=== PATIENT | male | born 1985 | race Caucasian/White ===

== ENCOUNTER 2018-06-19 18:54 | Emergency (ER) | payer OTHER ==
[2018-06-19] MEDS ORDERED: ACETAMINOPHEN 500 MG TABLET PO STA (21:22)
[2018-06-19] MEDS ORDERED: DEXAMETHASONE 10 MG/ML VIAL PO STA (21:55)
[2018-06-19] MEDS ORDERED: LIDOCAINE PATCH 5% TOP STA (21:55)
[2018-06-19] MEDS ORDERED: KETOROLAC 60 MG/2 ML VIAL IM STA (21:55)
--- NOTE | 2018-06-19 22:03 | ED Physician Documentation ---
PD HPI BACK PAIN - Stated complaint Stated Complaint: BACK PAIN - Chief complaint Chief Complaint: Back Pain - History obtained from History obtained from: Patient - History of Present Illness Timing - onset: How many hours ago (6) Timing - duration: Hours (6) Timing - details: Gradual onset Pain level max: 6 Pain level now: 4 Severity Comments: mild Location: Upper Quality: Pain Associated symptoms: No: Fever, Weakness, Numbness Improves with: Rest Worsened by: Movement, Lifting Contributing factors: Lifting, Twisting - Additional information Additional information: Injury lifting weights Review of Systems Ten Systems: 10 systems reviewed and negative Constitutional: reports: Reviewed and negative Eyes: reports: Reviewed and negative Ears: reports: Reviewed and negative Nose: reports: Reviewed and negative Throat: reports: Reviewed and negative Cardiac: reports: Reviewed and negative Respiratory: reports: Reviewed and negative GI: reports: Reviewed and negative : reports: Reviewed and negative Skin: reports: Reviewed and negative Musculoskeletal: reports: Reviewed and negative Neurologic: reports: Reviewed and negative Psychiatric: reports: Reviewed and negative Endocrine: reports: Reviewed and negative Immunocompromised: reports: Reviewed and negative PD PAST MEDICAL HISTORY - Past Medical History Past Medical History: No Cardiovascular: None Respiratory: None Neuro: None Endocrine/Autoimmune: None GI: None : None HEENT: None Psych: None Musculoskeletal: None Derm: None - Past Surgical History Past Surgical History: Yes General: Other - Present Medications Home Medications: Ambulatory Orders Medication Instructions Recorded Confirmed Acetaminophen [Tylenol Extra 1,000 mg PO TID #60 tablet 06/19/18 Strength] Ibuprofen 800 mg PO TID #60 tablet 06/19/18 Lidocaine Patch 5% [Lidoderm Patch] 1 each PATCH DAILY #10 patch 06/19/18 - Allergies Allergies/Adverse Reactions: Allergies Allergy/AdvReac Type Severity Reaction Status Date / Time No Known Drug Allergies Allergy Verified 06/19/18 20:27 - Social History Does the pt smoke?: No Smoking Status: Never smoker Does the pt drink ETOH?: Yes ETOH Use: Wine, Beer, Liquor Does the pt have substance abuse?: No - Immunizations Immunizations are current?: Yes - POLST Patient has POLST: No PD ED PE NORMAL - Vitals Vital signs reviewed: Yes - General General: Alert and oriented X 3, No acute distress - HEENT HEENT: PERRL - Neck Neck: Supple, no meningeal sign - Cardiac Cardiac: RRR, No murmur - Respiratory Respiratory: Clear bilaterally - Abdomen Abdomen: Normal bowel sounds, Soft, Non tender, Non distended - Derm Derm: Warm and dry - Extremities Extremities: No deformity - Neuro Neuro: Alert and oriented X 3 - Psych Psych: Normal mood, Normal affect Results - Vitals Vitals: Vital Signs - 24 hr 06/19/18 19:11 Temperature 36.7 C Heart Rate 88 Respiratory 16 Rate Blood Pressure 146/79 H O2 Saturation 100 Oxygen O2 Source Room air PD MEDICAL DECISION MAKING - ED course Complexity details: re-evaluated patient, considered differential, d/w patient ED course: 33-year-old male with thoracic pain after lifting weights. Neurologically intact.Thoracic paraspinous tenderness. Discharged with symptomatic treatment and return precautions. Departure - Departure Disposition: 01 Home, Self Care Clinical Impression: Thoracic myofascial strain Qualifiers: Encounter type: initial encounter Qualified Code(s): S29.019A - Strain of muscle and tendon of unspecified wall of thorax, initial encounter Condition: Stable Instructions: ED Sprain Thoracic Spine Follow-Up: YULIYA LENTZ [Primary Care Provider] - Prescriptions: Acetaminophen [Tylenol Extra Strength] 1,000 mg PO TID #60 tablet Ibuprofen 800 mg PO TID #60 tablet Lidocaine Patch 5% [Lidoderm Patch] 1 each PATCH DAILY #10 patch Comments: Follow-up with PCP within 24 hours. Return with worsening symptoms. Use medications as prescribed.
[2018-06-19] MEDS ORDERED: CHERRY SYRUP 10 ML UDC PO ONE (22:07)
[2018-06-19 22:12] VITALS: BP 126/81
== END 2018-06-19 22:21 | disposition home or self-care (01) ==
LOC: ED 18:54
DX: S29.019A Strain of muscle and tendon of unspecified wall of thorax, initial encounter (principal); X50.9XXA Other and unspecified overexertion or strenuous movements or postures, initial encounter; Y93.B3 Activity, free weights
CPT/HCPCS: 96372; 99283; A9270